=== PATIENT | female | born 1950 | race African-American/Black ===

== ENCOUNTER 2016-12-07 13:06 | Outpatient (CLI) | payer MEDICARE | END 2016-12-07 13:07 | disposition home or self-care (01) | DX: I26.99 Other pulmonary embolism without acute cor pulmonale (principal); I82.403 Acute embolism and thrombosis of unspecified deep veins of lower extremity, bilateral ==

== ENCOUNTER 2017-02-07 13:41 | Outpatient (CLI) | payer MEDICARE | END 2017-02-07 13:42 | disposition home or self-care (01) | DX: I26.99 Other pulmonary embolism without acute cor pulmonale (principal); I82.403 Acute embolism and thrombosis of unspecified deep veins of lower extremity, bilateral ==

== ENCOUNTER 2017-03-13 11:26 | Outpatient (CLI) | payer MEDICARE ==
[2017-03-13 12:03] LABS: INR 1.9 (0.8-1.2); PT - PROTHROMBIN TIME 21.5 secs (9.9-12.6)
== END 2017-03-13 11:27 | disposition home or self-care (01) ==
LOC: LAB 11:26
PROVIDERS: ATTEND Pharmacist
DX: I26.99 Other pulmonary embolism without acute cor pulmonale (principal)
CPT/HCPCS: 36415; 85610

== ENCOUNTER 2017-04-10 15:18 | Outpatient (CLI) | payer SELFPAY ==
[2017-04-10 17:53] LABS: INR 1.7 (0.8-1.2); PT - PROTHROMBIN TIME 19.6 secs (9.9-12.6)
== END 2017-04-10 15:19 | disposition home or self-care (01) ==
LOC: LAB.F 15:18
PROVIDERS: ATTEND Pharmacist
DX: I26.99 Other pulmonary embolism without acute cor pulmonale (principal)
CPT/HCPCS: 36415; 85610

== ENCOUNTER 2017-05-15 15:34 | Outpatient (CLI) | payer SELFPAY ==
[2017-05-15 19:35] LABS: INR 2.1 (0.8-1.2); PT - PROTHROMBIN TIME 23.4 secs (9.9-12.6)
== END 2017-05-15 15:35 | disposition home or self-care (01) ==
LOC: LAB.F 15:34
PROVIDERS: ATTEND Nurse Practitioner Family
DX: I26.99 Other pulmonary embolism without acute cor pulmonale (principal)
CPT/HCPCS: 36415; 85610

== ENCOUNTER 2017-06-19 08:49 | Outpatient (CLI) | payer MEDICAID ==
[2017-06-19 11:40] LABS: INR 2.8 (0.8-1.2); PT - PROTHROMBIN TIME 31.4 secs (9.9-12.6)
== END 2017-06-19 08:50 | disposition home or self-care (01) ==
LOC: LAB.F 08:49
PROVIDERS: ATTEND Pharmacist
DX: I26.99 Other pulmonary embolism without acute cor pulmonale (principal)
CPT/HCPCS: 36415; 85610

== ENCOUNTER 2017-09-06 08:19 | Outpatient (CLI) | payer MEDICARE, MEDICAID | END 2017-09-06 08:20 | disposition home or self-care (01) | LOC: LAB.F 08:19 | PROVIDERS: ATTEND Pharmacist | DX: I26.99 Other pulmonary embolism without acute cor pulmonale (principal); I82.403 Acute embolism and thrombosis of unspecified deep veins of lower extremity, bilateral | CPT/HCPCS: 36415 ==

== ENCOUNTER 2017-09-14 07:13 | Emergency (ER) | payer MEDICARE, MEDICAID ==
[2017-09-14] MEDS ORDERED: HYDROmorphone 1 MG/ML SYRINGE IM STA (07:59)
[2017-09-14] MEDS ORDERED: ONDANSETRON ODT 4 MG TABLET TL STA (07:59)
[2017-09-14] MEDS ORDERED: DEXAMETHASONE 10 MG/ML VIAL PO STA (07:59)
--- NOTE | 2017-09-14 08:03 | ED Physician Documentation ---
PD HPI ABD PAIN - Stated complaint Stated Complaint: LOWER ABD PX - Chief complaint Chief Complaint: Abd Pain - History obtained from History obtained from: Patient, Friend - History of Present Illness Timing - onset: Last night Timing - duration: Hours Timing - details: Gradual onset, Still present Pain level max: 10 Pain level now: 8 Quality: Sharp, Pain Location: LLQ Radiation: Left flank Improved by: Meds Worsened by: Other (nothing) Associated symptoms: Nausea. 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 She states this pain is usually been under control with CBD oil and the pain is now completely out of control. She did take some gabapentin she had been previously prescribed and this seems to have helped somewhat take the edge off the pain. She has had this similar pain previously and had some improvement with use of gabapentin and Dilaudid and she subsequently began to medicate with CBD oil and has not been using either gabapentin or Dilaudid. She does not feel like there is anything new or unusual about the pain other than the spike and it's non-response to the CBD. Review of Systems Constitutional: denies: Fever, Chills, Myalgias Eyes: denies: Decreased vision Ears: denies: Ear pain Nose: denies: Congestion Throat: denies: Sore throat Cardiac: denies: Chest pain / pressure, Palpitations Respiratory: denies: Dyspnea, Cough GI: reports: Abdominal Pain, Nausea. denies: Vomiting, Constipation, Diarrhea : denies: Dysuria, Frequency Skin: denies: Rash, Lesions Musculoskeletal: reports: Back pain. denies: Neck pain, Extremity pain Neurologic: denies: Generalized weakness, Focal weakness, Numbness PD PAST MEDICAL HISTORY - Past Medical History Cardiovascular: Hypertension, Deep vein thrombosis, Pulmonary embolism Respiratory: None, Asthma Neuro: None Endocrine/Autoimmune: None GI: Chronic diarrhea, Other AIRCONDITIONING ENGINEER: None : Other HEENT: None Psych: None Musculoskeletal: None Derm: None Other Past Medical History: Stage 4 sarcoma - Past Surgical History Past Surgical History: Yes General: Bowel surgery Ortho: Arthroscopic surgery /AIRCONDITIONING ENGINEER: Tubal ligation, Hysterectomy - Present Medications Home Medications: Ambulatory Orders Medication Instructions Recorded Confirmed Cholecalciferol (Vitamin D3) 2,000 units PO DAILY 08/29/16 09/14/17 [Vitamin D3] Levothyroxine [Synthroid] 75 mcg PO DAILY 08/29/16 09/14/17 Potassium Chloride [Micro-K] 10 meq PO BID 08/29/16 09/14/17 Scopolamine [Transderm-Scop] 1 patch TOP OAW 08/29/16 09/14/17 Warfarin [Coumadin] 5 mg PO DAILY 08/29/16 09/14/17 amLODIPine [Norvasc] 10 mg PO DAILY 08/29/16 09/14/17 hydroCHLOROthiazide 25 mg PO DAILY 08/29/16 09/14/17 [Hydrochlorothiazide] methylPREDNISolone 4 mg PO PRN PRN 08/29/16 09/14/17 [Methylprednisolone] Albuterol Sulfate [Proventil Hfa 1 - 2 puffs INH Q4H PRN 09/14/17 09/14/17 Inhaler] Hydromorphone HCl [Dilaudid] 4 mg PO Q4HR PRN #20 tablet 09/14/17 - Allergies Allergies/Adverse Reactions: Allergies Allergy/AdvReac Type Severity Reaction Status Date / Time Iodinated Contrast- Oral and Allergy Anaphylaxis Verified 09/14/17 07:23 IV Dye Penicillins AdvReac Intermediate Rash Verified 09/14/17 07:23 coban Allergy Rash Uncoded 09/19/16 12:04 plastic tape Allergy Rash Uncoded 09/19/16 12:03 - Social History Does the pt smoke?: No Smoking Status: Never smoker Does the pt drink ETOH?: Yes Does the pt have substance abuse?: Yes - Immunizations Immunizations are current?: Yes - POLST Patient has POLST: No PD ED PE NORMAL - Vitals Vital signs reviewed: Yes (normal ) - General General: Alert and oriented X 3, No acute distress, Well developed/nourished - HEENT HEENT: Atraumatic, PERRL, EOMI - Neck Neck: Supple, no meningeal sign - Respiratory Respiratory: No respiratory distress - Abdomen Abdomen: Soft, Non tender, Other (there are no skin changes noted to the area of the pain. ) - Back Back: No CVA TTP, No spinal TTP - Derm Derm: Normal color, Warm and dry, No rash - Extremities Extremities: No deformity, No edema - Neuro Neuro: No motor deficit, No sensory deficit Eye Opening: Spontaneous Motor: Obeys Commands Verbal: Oriented GCS Score: 15 - Psych Psych: Normal mood, Normal affect Results - Vitals Vitals: Vital Signs - 24 hr 09/14/17 07:18 Temperature 36.5 C Heart Rate 92 Respiratory 16 Rate Blood Pressure 104/77 O2 Saturation 95 Oxygen O2 Source Room air PD MEDICAL DECISION MAKING - ED course Complexity details: considered differential, d/w patient ED course: 67-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 We have offered pain control and here in the emergency department we have administered dexamethasone and Dilaudid with Zofran. I will write a prescription for some Dilaudid for the patient. I considered alternative diagnosis to account for her pain. She does not have a kidney on that side and kidney stone is not likely. She has had this pain previously related to her cancer and has an exacerbation after immunotherapy. We are hoping for tumor necrosis. Departure - Departure Disposition: Home, Self Care Clinical Impression: Cancer associated pain Condition: Stable Instructions: ED Chronic Pain Management Follow-Up: MARCO ANTONIO LEE [Primary Care Provider] - Prescriptions: Hydromorphone HCl [Dilaudid] 4 mg PO Q4HR PRN #20 tablet PRN Reason: Pain
[2017-09-14] MEDS ORDERED: HYDROmorphone 1 MG/ML SYRINGE ONE (08:10)
[2017-09-14] MEDS ORDERED: ONDANSETRON ODT 4 MG TABLET ONE (08:11)
[2017-09-14] MEDS ORDERED: DEXAMETHASONE 10 MG/ML VIAL ONE (08:11)
[2017-09-14 09:23] VITALS: BP 114/68
== END 2017-09-14 09:32 | disposition home or self-care (01) ==
LOC: ED 07:13
DX: G89.3 Neoplasm related pain (acute) (chronic) (principal); C26.9 Malignant neoplasm of ill-defined sites within the digestive system; I10 Essential (primary) hypertension; Z86.711 Personal history of pulmonary embolism; Z86.718 Personal history of other venous thrombosis and embolism; Z79.01 Long term (current) use of anticoagulants
CPT/HCPCS: 96372; 99283; J1170; Q0162

== ENCOUNTER 2017-11-18 11:18 | Outpatient (CLI) | payer MEDICARE, MEDICAID | END 2017-11-18 11:19 | disposition critical access hospital (66) | LOC: EMS 11:18 | PROVIDERS: ATTEND Surgery | DX: K92.1 Melena (principal) | CPT/HCPCS: A0425; A0429 ==

== ENCOUNTER 2017-12-31 18:33 | Outpatient (CLI) | payer MEDICARE, MEDICAID | END 2017-12-31 18:34 | disposition critical access hospital (66) | LOC: EMS 18:33 | PROVIDERS: ATTEND Surgery | DX: R53.1 Weakness (principal); W18.39XA Other fall on same level, initial encounter; Y92.002 Bathroom of unspecified non-institutional (private) residence as the place of occurrence of the external cause | CPT/HCPCS: A0425; A0429 ==

== ENCOUNTER 2017-12-31 19:00 | Observation (INO) | payer MEDICARE, MEDICAID ==
[2017-12-31 20:19] LABS: BILIRUBIN,URINE NEGATIVE (NEGATIVE); GLUCOSE, URINE (UA) NEGATIVE (NEGATIVE); KETONES,URINE (UA) NEGATIVE (NEGATIVE); LEUKOCYTE ESTERASE, URINE NEGATIVE (NEGATIVE); NITRITE,URINE NEGATIVE (NEGATIVE); OCCULT BLOOD,URINE NEGATIVE (NEGATIVE); PH,URINE 5.5 PH (5.0-7.5); PROTEIN,URINE NEGATIVE (NEGATIVE); UROBILINOGEN,URINE 0.2 (NORMAL) E.U./dL (NORMAL)
[2017-12-31 20:21] LABS: CLARITY,URINE CLEAR (CLEAR)
[2017-12-31 20:46] LABS: BACTERIA,URINE Moderate /HPF (None Seen); RBC,URINE 0-5 /HPF (0-5); SQUAMOUS EPITHELIAL CELL,UR MANY Squamous (<= Few)
--- NOTE | 2017-12-31 21:44 | ED Physician Documentation ---
History of Present Illness - Stated complaint Stated Complaint: GLF/WEAKNESS - Chief complaint Chief Complaint: Neuro - History obtained from History obtained from: Patient - History of Present Illness Timing: Enter time (12:00 (noon)), Today Pain level now: 0 Improved by: no ameliorating factors Worsened by: no apparent inciting or exacerbating factors - Additonal information Additional information: c/o sudden onset generalized weakness since noon today, she fell to the floor, although she did not sustain any injuries. She denies loss of consciousness. She lay on the floor for approximately two hours because of her profound, generalized weakness. She was eventually able to get to her phone, called [facility], But before they were able to advise her, her phone was running out of battery. Does she hung up and called 911 and was brought to this emergency department. Patient lives alone. patient was at [facility] yesterday when she was transfused red blood cells and fluids. Review of Systems Constitutional: reports: Fatigue. denies: Fever, Chills, Sweats Cardiac: reports: Reviewed and negative Respiratory: reports: Reviewed and negative GI: reports: Reviewed and negative : denies: Dysuria, Frequency Musculoskeletal: reports: Reviewed and negative Neurologic: reports: Generalized weakness. denies: Focal weakness, Numbness, Syncope, Confused, Altered mental status, Headache, Head injury, LOC PD PAST MEDICAL HISTORY - Past Medical History Cardiovascular: Hypertension, Deep vein thrombosis, Pulmonary embolism Respiratory: Shortness of breath Neuro: Other Endocrine/Autoimmune: HyPOthyroidism GI: GI bleed, Ulcers, Chronic diarrhea, Other MESS ATTENDANT CREW: None : Other HEENT: Other Psych: None Musculoskeletal: Osteoarthritis, Fatigue Derm: Other - Past Surgical History Past Surgical History: Yes General: Appendectomy, Bowel surgery Ortho: Arthroscopic surgery /MESS ATTENDANT CREW: Tubal ligation, Hysterectomy - Present Medications Home Medications: Ambulatory Orders Medication Instructions Recorded Confirmed Cholecalciferol (Vitamin D3) 2,000 units PO DAILY 08/29/16 11/18/17 [Vitamin D3] Potassium Chloride [Micro-K] 20 meq PO BID 08/29/16 11/19/17 Scopolamine [Transderm-Scop] 1 patch TOP Q72H 08/29/16 11/19/17 Warfarin [Coumadin] 1.25 mg PO DAILY 08/29/16 11/19/17 amLODIPine [Norvasc] 10 mg PO DAILY 08/29/16 11/18/17 hydroCHLOROthiazide 25 mg PO DAILY 08/29/16 11/18/17 [Hydrochlorothiazide] methylPREDNISolone 4 mg PO PRN PRN 08/29/16 11/18/17 [Methylprednisolone] Albuterol Sulfate [Proventil Hfa 1 - 2 puffs INH Q4H PRN 09/14/17 11/18/17 Inhaler] Hydromorphone HCl [Dilaudid] 4 mg PO Q4HR PRN #20 tablet 09/14/17 11/18/17 Levothyroxine Sodium [Synthroid] 100 mcg PO QDAC 11/19/17 01/01/18 Magnesium Oxide [Mag Ox] 400 mg PO DAILYWM #30 tablet 11/21/17 Duloxetine HCl 20 mg PO DAILY 01/01/18 Pantoprazole [Protonix] 40 mg PO QDAC 01/01/18 - Allergies Allergies/Adverse Reactions: Allergies Allergy/AdvReac Type Severity Reaction Status Date / Time Iodinated Contrast- Oral and Allergy Anaphylaxis Verified 09/14/17 07:23 IV Dye Penicillins AdvReac Intermediate Rash Verified 09/14/17 07:23 coban Allergy Rash Uncoded 09/19/16 12:04 plastic tape Allergy Rash Uncoded 09/19/16 12:03 - Social History Does the pt smoke?: No Smoking Status: Never smoker Does the pt drink ETOH?: Yes Does the pt have substance abuse?: Yes - Immunizations Immunizations are current?: Yes - POLST Patient has POLST: No PD ED PE NORMAL - Vitals Vital signs reviewed: Yes - General General: Alert and oriented X 3, No acute distress, Well developed/nourished - HEENT HEENT: Atraumatic, PERRL, EOMI, Moist mucous membranes - Neck Neck: Supple, no meningeal sign - Cardiac Cardiac: RRR, No murmur, No gallop, No rub - Respiratory Respiratory: No respiratory distress, Clear bilaterally - Abdomen Abdomen: Soft, Non tender - Back Back: No CVA TTP - Extremities Extremities: No edema - Neuro Neuro: Alert and oriented X 3, customer advisor specialist 2-12 intact, No motor deficit (although she has good bilateral manager child strength and plantar flexion,she exhibits generalize weakness manifest as unable to use bedside commode without substantial assistance or even sit up in bed for lung exam without assistance.), No sensory deficit, Normal speech Eye Opening: Spontaneous Motor: Obeys Commands Verbal: Oriented GCS Score: 15 Results - Vitals Vitals: Oxygen O2 Source Room air - Labs Labs: Laboratory Tests 12/31/17 12/31/17 12/31/17 19:45 22:30 22:30 WBC 12.2 H RBC 3.66 L Hgb 10.2 L Hct 30.4 L MCV 83.1 MCH 27.9 MCHC 33.6 RDW 17.3 H Plt Count 151 MPV 8.0 Neut # Not Reportable Lymph # Not Reportable [place] # Not Reportable Eos # Not Reportable Baso # Not Reportable Absolute Nucleated RBC Not Reportable Total Counted 100 Band Neuts % (Manual) 1 Reactive Lymphs % (Man) 4 Abnorm Lymph % (Manual) 0 Nucleated RBC % Not Reportable Neutrophils # (Manual) 8.8 H Lymphocytes # (Manual) 1.6 Monocytes # (Manual) 1.8 H Eosinophils # (Manual) 0.0 Basophils # (Manual) 0.0 Differential Comment MANUAL DIFFERENTIAL Platelet Estimate NORMAL (130-450,000) Platelet Morphology NORMAL APPEARANCE RBC Morph Micro Appear 1+ MICROCYTOSIS PT INR Sodium 135 Potassium 2.5 L* Chloride 104 Carbon Dioxide 21 Anion Gap 10.0 BUN 8 Creatinine 1.1 H Estimated GFR (MDRD) 60 L Glucose 85 Calcium 7.2 L Total Bilirubin 0.9 AST 18 ALT < 10 L Alkaline Phosphatase 72 Total Creatine Kinase Total Protein 4.7 L Albumin 1.3 L Globulin 3.4 Albumin/Globulin Ratio 0.4 L Lipase < 10 L Urine Color YELLOW Urine Clarity CLEAR Urine pH 5.5 Ur Specific [place] 1.010 Urine Protein NEGATIVE Urine Glucose (UA) NEGATIVE Urine Ketones NEGATIVE Urine Occult Blood NEGATIVE Urine Nitrite NEGATIVE Urine Bilirubin NEGATIVE Urine Urobilinogen 0.2 (NORMAL) Ur Leukocyte Esterase NEGATIVE Urine RBC 0-5 Urine WBC 0-3 Ur Squamous Epith Cells MANY Squamous H Urine Bacteria Moderate H Urine Culture Comments NOT INDICATED 12/31/17 12/31/17 22:30 22:30 WBC RBC Hgb Hct MCV MCH MCHC RDW Plt Count MPV Neut # Lymph # [place] # Eos # Baso # Absolute Nucleated RBC Total Counted Band Neuts % (Manual) Reactive Lymphs % (Man) Abnorm Lymph % (Manual) Nucleated RBC % Neutrophils # (Manual) Lymphocytes # (Manual) Monocytes # (Manual) Eosinophils # (Manual) Basophils # (Manual) Differential Comment Platelet Estimate Platelet Morphology RBC Morph Micro Appear PT 15.3 H INR 1.4 H Sodium Potassium Chloride Carbon Dioxide Anion Gap BUN Creatinine Estimated GFR (MDRD) Glucose Calcium Total Bilirubin AST ALT Alkaline Phosphatase Total Creatine Kinase 10 L Total Protein Albumin Globulin Albumin/Globulin Ratio Lipase Urine Color Urine Clarity Urine pH Ur Specific [place] Urine Protein Urine Glucose (UA) Urine Ketones Urine Occult Blood Urine Nitrite Urine Bilirubin Urine Urobilinogen Ur Leukocyte Esterase Urine RBC Urine WBC Ur Squamous Epith Cells Urine Bacteria Urine Culture Comments PD MEDICAL DECISION MAKING - ED course Complexity details: reviewed results, re-evaluated patient, considered differential, d/w patient ED course: generalized weakness with hypokalemia. she reported feeling improved during ED stay, although still too weak to stand and ambulate on her own. Departure - Departure Disposition: ED Place in Observation Clinical Impression: Hypokalemia, Weakness Condition: Fair Discharge Date/Time: 01/01/18 02:30
[2017-12-31] MEDS ORDERED: SODIUM CHLORIDE 0.9% 500 ML IV STA (22:01)
[2017-12-31 22:47] LABS: BASOPHILS % (AUTO) 0.1 %; EOSINOPHILS % (AUTO) 0.4 %; HGB - HEMOGLOBIN 10.2 g/dL (12.0-16.0); LYMPHOCYTES % (AUTO) 9.1 %; MEAN CORPUSCULAR HEMOGLOBIN 27.9 pg (27.0-31.0); MEAN CORPUSCULAR HGB CONC 33.6 g/dL (32.0-36.0); MEAN CORPUSCULAR VOLUME 83.1 fL (81.0-99.0); MONOCYTES % (AUTO) 18.9 %; NEUTROPHILS % (AUTO) 71.5 %; PLT - PLATELET COUNT 151 10^3/uL (130-450); RED BLOOD COUNT 3.66 10^6/uL (4.20-5.40); RED CELL DISTRIBUTION WIDTH 17.3 % (12.0-15.0); WHITE BLOOD COUNT 12.2 x10^3/uL (4.8-10.8)
[2017-12-31 22:50] LABS: ABNORMAL LYMPHS % (MANUAL) 0 %
[2017-12-31 23:07] LABS: ALBUMIN 1.3 g/dL (3.2-5.5); ALBUMIN/GLOBULIN RATIO 0.4 (1.0-2.2); ALKALINE PHOSPHATASE 72 IU/L (42-121); ALT ALANINE AMINOTRANSFERASE < 10 IU/L (10-60); AST ASPARTATE AMINOTRANSFERASE 18 IU/L (10-42); BILIRUBIN,TOTAL 0.9 mg/dL (0.2-1.0); BUN - BLOOD UREA NITROGEN 8 mg/dL (6-20); CALCIUM 7.2 mg/dL (8.5-10.3); CARBON DIOXIDE - CO2 21 mmol/L (21-32); CHLORIDE 104 mmol/L (101-111); CREATININE 1.1 mg/dL (0.4-1.0); GFR - MDRD 60 (>89); GLUCOSE 85 mg/dL (70-100); SODIUM 135 mmol/L (135-145); TOTAL PROTEIN 4.7 g/dL (6.7-8.2)
[2017-12-31 23:09] LABS: LIPASE < 10 U/L (22-51)
[2017-12-31] MEDS ORDERED: HYDROmorphone 1 MG/ML SYRINGE IVP STA (23:10)
[2017-12-31] MEDS ORDERED: POTASSIUM CHLOR 10 MEQ/100 ML 10 MEQ/100 ML BAG IV STA (23:11)
[2017-12-31] MEDS ORDERED: POTASSIUM CHLOR 10 MEQ/100 ML 10 MEQ/100 ML BAG IV ONE (23:11)
[2017-12-31 23:21] LABS: BAND NEUTROPHILS % (MANUAL) 1 %; LYMPHOCYTES # (MANUAL) 1.6 10^3/uL (1.5-3.5); LYMPHOCYTES % (MANUAL) 9 %; MONOCYTES # (MANUAL) 1.8 10^3/uL (0.0-1.0); NEUTROPHILS # (MANUAL) 8.8 10^3/uL (1.5-6.6); NEUTROPHILS % (MANUAL) 71 %
[2017-12-31 23:23] LABS: DIFFERENTIAL COMMENT MANUAL DIFFERENTIAL; PLATELET ESTIMATE, MANUAL NORMAL (130-450,000) (NORMAL); PLATELET MORPHOLOGY NORMAL APPEARANCE (NORMAL)
[2018-01-01] MEDS ORDERED: PROCHLORPERAZINE 10 MG/2 ML VIAL IVP PRN (01:27)
[2018-01-01] MEDS ORDERED: TEMAZEPAM 15 MG CAPSULE PO PRN (01:27)
[2018-01-01] MEDS ORDERED: ACETAMINOPHEN 325 MG TABLET PO PRN (01:27)
[2018-01-01] MEDS ORDERED: ALBUTEROL SULFATE INH PRN (01:31)
[2018-01-01] MEDS ORDERED: ALBUTEROL 6.7 GM INHALER INH PRN (01:55)
[2018-01-01] MEDS ORDERED: SCOPOLAMINE PATCH TOP SCH (02:00)
--- NOTE | 2018-01-01 03:02 | XRAY Preliminary Report ---
Exam: XR CHEST 2 VIEW X-RAY IMPRESSION: 1. Small hazy left basilar airspace disease. Trace left effusion. 2. Right arm PICC line catheter tip at the cavoatrial junction. [facility] SITE ID: [id number]
--- NOTE | 2018-01-01 03:05 | CT Preliminary Report ---
Exam: CT HEAD W/O IMPRESSION: Generalized age-related cortical atrophic changes without evidence of acute intracranial abnormality. [facility] SITE ID: [id number]
--- NOTE | 2018-01-01 03:07 | XRAY Report ---
EXAM: CHEST RADIOGRAPHY EXAM DATE: 01/01/2018 02:38 AM. CLINICAL HISTORY: Near syncope, chest pain. COMPARISON: 05/04/2013. TECHNIQUE: 2 views. FINDINGS: Lungs/Pleura: Small lung volumes. There is left basilar hazy opacity. Trace left effusion. No definit e pneumothorax. Mediastinum: Mild enlargement of the cardiac silhouette. Other: Right arm PICC line catheter tip projects at the cavoatrial junction. IMPRESSION: 1. Small hazy left basilar airspace disease. Trace left effusion. 2. Right arm PICC line catheter tip at the cavoatrial junction. [facility] Referring Provider Line: [phone] SITE ID: [id number]
--- NOTE | 2018-01-01 03:11 | CT Report ---
EXAM: CT HEAD EXAM DATE: 01/01/2018 02:37 AM. CLINICAL HISTORY: Near-syncope. COMPARISON: Brain CT from 05/04/2013. TECHNIQUE: Multiaxial CT images were obtained from the foramen magnum to the vertex. Reformats: Coron al. IV contrast: None. In accordance with CT protocol optimization, one or more of the following dose reduction techniques w ere utilized for this exam: automated exposure control, adjustment of mA and/or KV based on patient s ize, or use of iterative reconstructive technique. FINDINGS: Parenchyma: No intraparenchymal hemorrhage. No evidence of mass, midline shift, or CT findings of acu te infarction. Cesar-white differentiation is distinct. Mild diffuse chronic microangiopathic white ma tter changes are evident. Extraaxial Spaces: Normal for age. No subdural or epidural collections identified. Ventricles: The ventricles and cortical sulci are moderately enlarged, consistent with age-related ti ssue loss. Sinuses and orbits: Imaged paranasal sinuses, orbits, and mastoids show no significant abnormality. Bones: No evidence of fracture or calvarial defect. IMPRESSION: Generalized age-related cortical atrophic changes without evidence of acute intracranial abnormality. [facility] Referring Provider Line: [phone] SITE ID: [id number]
[2018-01-01] MEDS: HYDROmorphone 1 MG/ML SYRINGE IVP PRN ×3 (03:19→16:08)
[2018-01-01] MEDS: SODIUM CHLORIDE FLUSH 0.9% 10 ML SYRINGE IVP PRN ×3 (03:20→12:31)
[2018-01-01 05:54] LABS: CALCIUM 7.3 mg/dL (8.5-10.3); CREATININE 1.1 mg/dL (0.4-1.0)
[2018-01-01 07:00] LABS: INR 1.4 (0.8-1.2); PT - PROTHROMBIN TIME 15.3 secs (9.9-12.6)
[2018-01-01] MEDS ORDERED: LEVOTHYROXINE 100 MCG TABLET PO SCH (07:00)
[2018-01-01] MEDS ORDERED: ALBUTEROL NEB 2.5 MG/3 ML INH PRN (07:16)
--- NOTE | 2018-01-01 07:38 | HISTORY & PHYSICAL EXAMINATION ---
DATE OF SERVICE: 01/01/2018 Physician: Debo Lomax MD HISTORY OF PRESENT ILLNESS: This is a 67-year-old, black female with history of hypertension, DVT and pulmonary embolism for which she was on Coumadin, history of sarcoma involving many organs and she sees an oncologist in [place], history of anemia, hypothyroidism , shortness of breath for which she uses an inhaler p.r.n., osteoarthritis, prior appendectomy , hysterectomy, and tubal ligation. The patient presents with an episode of sudden, severe weakness and falling. She was walking in her house, and suddenly felt extremely weak and slumped to the ground, stated she did not have trauma, nor syncope, as she can remember the entire event. She laid on the floor for approximately 2 hours until she was able to shimmy herself over to her cell phone. She called her oncologist and was put on hold, and decided therefore to call 911. The EMS people picked her up and brought her to the emergency room. They told her that they may have picked up traces of carbon monoxide in the apartment. The patient has just moved to this apartment approximately 2-3 months ago and lives alone. In the emergency room, she gave this entire description and had no other complaints whatsoever. She was found to have a low potassium of 2.5 in our emergency room and started to get potassium replacement. She did describe that she was in [place] 1 or 2 days ago for a transfusion of 2 units of packed red blood cells. To me, she claims that they did not give a diuretic in between the transfusions. As she is describing the event, she is speaking very slowly, as if she is very lethargic or sedated, and she states that this type of slow speech is not her normal. PAST MEDICAL HISTORY: Hypertension, DVT and PE, for which she was on Coumadin, and was admitted here approximately 6 weeks ago for a melenic stool, was accepted for transfer to [place], but they had no open beds and her melena did not recur while she was awaiting a bed for several days and she actually was discharged home without an endoscopy. She has a history of shortness of breath for which she uses inhalers p.r.n., history of hypothyroidism, osteoarthritis, appendectomy, tubal ligation, and hysterectomy, history of sarcoma with mets, followed by an Oncologist in [place]. ALLERGIES 1. IODINE. 2. PENICILLINS. 3. COBAN. 4. PLASTIC TAPE. MEDICATIONS AT HOME 1. Vitamin D3 2000 units daily. 2. Hydrochlorothiazide 25 mg daily. 3. Amlodipine 10 mg daily. 4. Scopolamine patch topically every 3 days. 5. Potassium chloride 20 mEq b.i.d. 6. Magnesium 400 mg daily. 7. Synthroid 100 mcg daily. 8. Albuterol inhaler p.r.n. 9. Dilaudid unknown dose q.4 hours p.r.n. pain. 10. A Medrol Dosepak is listed, but it is unclear if she really takes this. All of these medication are unconfirmed yet with her pharmacy, as to being current. REVIEW OF SYSTEMS: A comprehensive review of systems was performed and the pertinent positives are as above. The patient has never had an event like this before. FAMILY HISTORY: No inherited diseases. SOCIAL HISTORY: She is a nonsmoker who never smoked, uses no alcohol, uses no illicit drugs. She is living alone in a new apartment. She does not work. PHYSICAL EXAMINATION GENERAL: Elderly, black female. She appears older than her age. She is moving all extremities. She is speaking with very slow speech, almost slurring her words. VITAL SIGNS: Blood pressure 143/82, pulse of 81 in sinus rhythm, afebrile, room air saturation 96%. HEENT: Shows moist oral mucosa. No nasal discharge. NECK: Without JVD or carotid bruits. LUNGS: Clear. HEART: Heart sounds normal. No audible murmurs or gallops. ABDOMEN: Soft, normal bowel sounds, nontender. EXTREMITIES: Show no clubbing, cyanosis or edema. NEUROLOGIC: Slow, slurred speech, otherwise grossly intact. LABORATORIES: Sodium 135, potassium 2.5, BUN 8, creatinine 1.1. Liver tests normal. Bilirubin normal. Albumin 1.3. White blood count 12.2 with a left shift, hemoglobin 10.2, platelet count normal at 151. Urinalysis showed many squamous cells and was leukocyte esterase negative. No PT/INR was done. Chest x-ray has a haziness in the left base and a trace left effusion, and there is a right arm PICC line with its tip in the cavoatrial junction. A head CT was done after she was admitted showing no acute mass or hemorrhage. There was generalized age-related cortical atrophy. EKG: Normal sinus rhythm with QS waves in V5 and V6, and poor R-wave progression across the precordium, and diffusely flat T waves. She has early repolarization. There is no old EKG available for comparison. IMPRESSION/DIAGNOSES 1. Near syncope vs. sudden generalized weakness. 2. Weakness and slurred speech. Possible carbon monoxide exposure, according to the patient's report. 3. Hypokalemia. 4. Sarcoma of multiple sites. 5. Anemia and prior gastrointestinal bleed, recent blood transfusion. 6. Abnormal electrocardiogram with evidence of a prior lateral HI (versus abnormal lead positioning). PLAN: Place the patient in Observation. Telemetry should be used to monitor her for a dysrhythmia. Her low potassium may have caused a significant arrhythmia, resulting in this sudden event. Correct the potassium and follow BMP. Obtain orthostatic vital signs to determine if there are signs of dehydration. Obtain a PT/INR to determine if she is back on the Coumadin. Reconcile her entire list of medications to make sure that there is no sedative or other medication that could be giving her this slow speech plus weakness, resulting in a fall. Obtain a CK to check for rhabdomyolysis, given the fact that she was 2 hours on the ground. Obtain an Echo to evaluate for an HI, given the abnormal EKG and cycle troponins to evaluate for an acute HI. A TIA workup should also be done including carotid Doppler and a brain MRI. Avoid sedatives such as sleeping medications, use pain medications at a minimum. DEEP VENOUS THROMBOSIS PROPHYLAXIS: SCDs and she may already be therapeutic on pharmaceutical therapy. CODE STATUS: DNR, which was confirmed with her at the very last admission 6 weeks ago. ATTESTATION: The patient is expected to be discharged or transferred to another facility within 96 hours: Yes. TD: 01/01/2018 07:37 M[place]
[2018-01-01] MEDS ORDERED: GADOBUTROL 7.5 MMOL/7.5 ML VIAL ONE (07:57)
[2018-01-01] MEDS ORDERED: POTASSIUM CHLORIDE 10 MEQ CAPSULE PO SCH (08:00)
[2018-01-01] MEDS ORDERED: MAGNESIUM OXIDE 400 MG TABLET PO SCH (08:00)
[2018-01-01] MEDS ORDERED: NS W/20 MEQ KCL 1,000 ML IV SCH (08:00)
[2018-01-01] MEDS ORDERED: FAMOTIDINE 20 MG TABLET PO SCH (09:00)
[2018-01-01] MEDS ORDERED: POLYETHYLENE GLYCOL 3350 17 GM PACKET PO SCH (09:00)
[2018-01-01] MEDS ORDERED: NON FORMULARY MED (Cholecalciferol (Vitamin D3) [Vitamin D3] 2,000 UNITS) PO SCH (09:00)
[2018-01-01] MEDS ORDERED: CHOLECALCIFEROL 1,000 UNIT TABLET PO SCH (09:00)
[2018-01-01] MEDS: POTASSIUM CHLOR 10 MEQ/100 ML 10 MEQ/100 ML BAG IV SCH ×3 (09:02→12:57)
[2018-01-01] MEDS ORDERED: GADOBUTROL 7.5 MMOL/7.5 ML VIAL IVP ONE (12:00)
--- NOTE | 2018-01-01 13:05 | MRI Report ---
EXAM: MRI BRAIN WITHOUT AND WITH CONTRAST EXAM DATE: 01/01/2018 12:03 PM. CLINICAL HISTORY: 67-year-old with slurred speech COMPARISON: CT head 01/01/2018, 05/04/2013. TECHNIQUE: Multiplanar, multisequence T1-weighted and fluid-sensitive MR sequences of the brain were performed. Sequences optimized for routine evaluation. Other: None. IV Contrast: 6 cc GADAVIST. FINDINGS: Brain Volume: Normal for age. Parenchyma: No acute parenchymal hemorrhage, mass, or midline shift. Jozd-st-zmcjndza bilateral areas of T2/FLAIR signal hyperintensity seen. No areas of restricted diffusion seen to suggest acute infar ct. No areas of abnormal parenchymal hemosiderin deposition. No abnormal enhancement. Ventricles/Cisterns: There is small volume FLAIR signal abnormalities seen within the sulci of the lay perior right frontal lobe with corresponding hemosiderin deposition. Findings suggest trace to small volume subarachnoid hemorrhage. There is prominent vascular structure seen coursing adjacent to the s ubarachnoid hemorrhage. No other abnormal extracerebral fluid collection/mass seen. Ventricles appear age-appropriate. Cisterns are patent. Orbits: Changes of bilateral lens replacement. Sella Turcica: The pituitary gland, cavernous sinuses, suprasellar cistern and optic chiasm are unrem arkable. IAC: Symmetric and unremarkable. Vasculature: Normal signal flow void is seen in the major arterial structures at the skull base. The dural sinuses are patent and enhance normally. Sinuses: No acute sinus disease. Bones: No focal pathologic appearing marrow signal changes. Other: None. IMPRESSION: 1. Small volume subarachnoid hemorrhage involving sulci of the right frontal lobe. There is prominen t vascular structure seen coursing adjacent to the subarachnoid hemorrhage. This raises the possibili ty of potential underlying occult vascular malformation. Consider correlation with cerebral angiogram . 2. No acute infarct, parenchymal hemorrhage, mass, hydrocephalus, midline shift, or abnormal postcont rast enhancement. 3. Mild to moderate white matter changes that while nonspecific may represent sequela of chronic smal l vessel ischemic disease. RADIA The above findings were discussed with Cassidy Joyce by Dr. Dale Bergeron at 13:03 hrs o n 01/01/18. Referring Provider Line: [phone] SITE ID: [id number]
[2018-01-01] MEDS: SODIUM CHLORIDE FLUSH 0.9% 10 ML SYRINGE IVP SCH ×2 (13:25→16:08)
--- NOTE | 2018-01-01 14:50 | Discharge Plan ---
Discharge Plan Disposition: 02 Transfer Acute Care Hosp Condition: Fair Diet: Regular Activity Restrictions: Activity as Tolerated Shower Restrictions: No Driving Restrictions: Yes Weight Bearing: Full Weight Additional Instructions or Follow Up instructions: Care to continue at [facility] ICU for acute right frontal subarachnoid hemorrhage ; per MRI report. Post-fall. No Smoking: If you smoke, Please STOP! Call for help. Follow-up with: Elisa Tom ARNP [Primary Care Provider] -
--- NOTE | 2018-01-01 14:54 | DISCHARGE SUMMARY ---
Discharge Summary Admit Date: 01/01/18 Discharge Date: 01/01/18 Discharging Provider: JORDAN Paz Primary Care Provider: Elisa Tom Code Status: Do Not Attempt Resuscitation Condition at Discharge: Fair Discharge Disposition: 02 Transfer Acute Care Hosp Discharge Facility Name: [facility] neuro surgery - DIAGNOSES Admission Diagnoses: Syncope and collapse (R55) Weakness (R53.1) Hypokalemia (E87.6) Malignant neoplasm of connective and soft tissue, unspecified (C49.9) Anemia, unspecified (D64.9) Discharge Diagnoses with Status of Each Condition: Nonaneurysmal subarachnoid hemorrhage - new on this admission, stable. Syncope and collapse (R55) resolved. Weakness (R53.1) ongoing, care to continue. Hypokalemia (E87.6) improved, care to continue. 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 Anemia, unspecified (D64.9) chronic, stable, no signs of bleeding. - HPI History of Present Illness: Iliana Cardozo is a 67-year old female with a past medical history of metastatic GIST, renal cell carcinoma, status post nephrectomy, status post spleenectomy, HTN, hypothyroidism, DVT/PE, GI bleeding, and anemia, status post blood transfusions. She reports that she fell last evening after becoming suddenly weak, but did not loose consciousness. She believes that she laid on the floor for about 2 hours, then shimmied to the nearest phone and attempted to call her oncologist in [place]. She did not get through to anyone , so called 911. Once in the ED she was fount to be hypokalemic with a potassium of 2.5, an elevated WBC count of 12. She denies any injuries, except she remembers hitting the back of her head at the time of the fall. She denies headaches, nausea, vomiting, fevers, chills or confusion. The patient has just moved to a new apartment which has been stressful, and states that only 2 days ago she had a blood transfusion for her anemia. The only neuro deficit noted was slow speech with processing delay. She will be admitted to observation for further workup including a brain MRI, telemetry monitoring, electrolyte replacement, and orthostatic vital signs. - HOSPITAL COURSE Hospital Course: The patient notes that when she fell at home prior to admission she hit the back of her head on the floor. She has been denying headaches, vision changes, or confusion during this hospital stay. Patient had a Potassium of 2.5 on admission that improved with IVFs, IV supplementation to 2.9 today. She has a right arm PICC line in good working order. Patient underwent a head CT early this AM at 0200 that did not show any acute bleeding. 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 A bedside echocardiogram was completed as part of her syncopal work up. Results show normal LV function and size with an EF of 55-60%, trace mitral regurg, mild tricuspid regurg, RVSP at rest is 20mmHg, a trivial pericardial effusion present , and no evidence of atrial shunt- confirmation with a bubble study. There was a medium sized pleural effusion noted. The patient did not require oxygen, and did not complain of shortness of breath. The pleural effusion may be a result of her recent blood transfusion/also history of PEs. A head MRI was completed at 11AM and results were called by reading radiologist who recommended cerebral angiogram due to acute findings of; small volume subarachnoid hemorrhage involving sulci of the right frontal lobe. There is prominent of potential underlying occult vascular malformation. A call was made to [facility] neuro- surgery who recommends transfer for possible intervention and due to bed shortages, patient will go to a general floor. Patient was transferred via ACLS to a higher level of care with appropriate specialists. A call was made to patient's son, Andrea with a medical update and upcoming plans of transport to [facility]. - ALLERGIES Allergies/Adverse Reactions: Allergies Allergy/AdvReac Type Severity Reaction Status Date / Time Iodinated Contrast- Oral and Allergy Anaphylaxis Verified 09/14/17 07:23 IV Dye Penicillins AdvReac Intermediate Rash Verified 09/14/17 07:23 coban Allergy Rash Uncoded 09/19/16 12:04 plastic tape Allergy Rash Uncoded 09/19/16 12:03 - MEDICATIONS Home Medications: Ambulatory Orders Medication Instructions Recorded Confirmed Cholecalciferol (Vitamin D3) 2,000 units PO DAILY 08/29/16 11/18/17 [Vitamin D3] Potassium Chloride [Micro-K] 20 meq PO BID 08/29/16 11/19/17 Scopolamine [Transderm-Scop] 1 patch TOP Q72H 08/29/16 11/19/17 Warfarin [Coumadin] 1.25 mg PO DAILY 08/29/16 11/19/17 amLODIPine [Norvasc] 10 mg PO DAILY 08/29/16 11/18/17 hydroCHLOROthiazide 25 mg PO DAILY 08/29/16 11/18/17 [Hydrochlorothiazide] methylPREDNISolone 4 mg PO PRN PRN 08/29/16 11/18/17 [Methylprednisolone] Albuterol Sulfate [Proventil Hfa 1 - 2 puffs INH Q4H PRN 09/14/17 11/18/17 Inhaler] Hydromorphone HCl [Dilaudid] 4 mg PO Q4HR PRN #20 tablet 09/14/17 11/18/17 Levothyroxine Sodium [Synthroid] 100 mcg PO QDAC 11/19/17 01/01/18 Magnesium Oxide [Mag Ox] 400 mg PO DAILYWM #30 tablet 11/21/17 Duloxetine HCl 20 mg PO DAILY 01/01/18 Pantoprazole [Protonix] 40 mg PO QDAC 01/01/18 - PHYSICAL EXAM AT DISCHARGE General Appearance: positive: No acute distress, Alert, Lethargic Eyes Bilateral: positive: Normal inspection ENT: positive: ENT inspection nml, No signs of dehydration Neck: positive: Thyroid nml, No JVD, Stiff neck Respiratory: positive: Chest non-tender, No respiratory distress Cardiovascular: positive: Regular rate & rhythm, No gallop, Decreased pulse(s) Peripheral Pulses: positive: 1+ Abdomen: positive: Non-tender, No organomegaly, Nml bowel sounds Back: positive: Nml inspection Skin: positive: No rash, Warm, Dry Extremities: positive: Non-tender, Full ROM, No pedal edema Neurologic/Psychiatric: positive: CN's nml (2-12), Sensation nml, Weakness, Slurred/abnml speech (slow delayed responses, abnormal from baseline. No confusion or expressive aphasia.), Depressed mood/affect Reflexes: Bicep (R): 1+, Bicep (L): 1+ - LABS Result Diagrams: 12/31/17 22:30 01/01/18 05:32 - DIAGNOSTIC IMAGING Diagnostic Imaging Results: Final report reviewed Diagnostic Imaging Results Comments: EXAM: MRI BRAIN WITHOUT AND WITH CONTRAST EXAM DATE: 01/01/2018 12:03 PM. CLINICAL HISTORY: 67-year-old with slurred speech COMPARISON: CT head 01/01/2018, 05/04/2013. TECHNIQUE: Multiplanar, multisequence T1-weighted and fluid-sensitive MR sequences of the brain were performed. Sequences optimized for routine evaluation. Other: None. IV Contrast: 6 cc GADAVIST. FINDINGS: Brain Volume: Normal for age. Parenchyma: No acute parenchymal hemorrhage, mass, or midline shift. Mild-to- moderate bilateral areas of T2/FLAIR signal hyperintensity seen. No areas of restricted diffusion seen to suggest acute infarct. No areas of abnormal parenchymal hemosiderin deposition. No abnormal enhancement. Ventricles/Cisterns: There is small volume FLAIR signal abnormalities seen within the sulci of the superior right frontal lobe with corresponding hemosiderin deposition. Findings suggest trace to small volume subarachnoid hemorrhage. There is prominent vascular structure seen coursing adjacent to the subarachnoid hemorrhage. No other abnormal extracerebral fluid collection/mass seen. Ventricles appear age-appropriate. Cisterns are patent. Orbits: Changes of bilateral lens replacement. Sella Turcica: The pituitary gland, cavernous sinuses, suprasellar cistern and optic chiasm are unremarkable. IAC: Symmetric and unremarkable. Vasculature: Normal signal flow void is seen in the major arterial structures at the skull base. The dural sinuses are patent and enhance normally. Sinuses: No acute sinus disease. Bones: No focal pathologic appearing marrow signal changes. Other: None. IMPRESSION: 1. Small volume subarachnoid hemorrhage involving sulci of the right frontal lobe. There is prominent vascular structure seen coursing adjacent to the subarachnoid hemorrhage. This raises the possibility of potential underlying occult vascular malformation. Consider correlation with cerebral angiogram. 2. No acute infarct, parenchymal hemorrhage, mass, hydrocephalus, midline shift , or abnormal postcontrast enhancement. 3. Mild to moderate white matter changes that while nonspecific may represent sequela of chronic small vessel ischemic disease. EXAM: CT HEAD EXAM DATE: 01/01/2018 02:37 AM. CLINICAL HISTORY: Near-syncope. COMPARISON: Brain CT from 05/04/2013. TECHNIQUE: Multiaxial CT images were obtained from the foramen magnum to the vertex. Reformats: Coronal. IV contrast: None. In accordance with CT protocol optimization, one or more of the following dose reduction techniques were utilized for this exam: automated exposure control, adjustment of mA and/or KV based on patient size, or use of iterative reconstructive technique. FINDINGS: Parenchyma: No intraparenchymal hemorrhage. No evidence of mass, midline shift, or CT findings of acute infarction. Cesar-white differentiation is distinct. Mild diffuse chronic microangiopathic white matter changes are evident. Extraaxial Spaces: Normal for age. No subdural or epidural collections identified. Ventricles: The ventricles and cortical sulci are moderately enlarged, consistent with age-related tissue loss. Sinuses and orbits: Imaged paranasal sinuses, orbits, and mastoids show no significant abnormality. Bones: No evidence of fracture or calvarial defect. IMPRESSION: Generalized age-related cortical atrophic changes without evidence of acute intracranial abnormality. EXAM: CHEST RADIOGRAPHY EXAM DATE: 01/01/2018 02:38 AM. CLINICAL HISTORY: Near syncope, chest pain. COMPARISON: 05/04/2013. TECHNIQUE: 2 views. FINDINGS: Lungs/Pleura: Small lung volumes. There is left basilar hazy opacity. Trace left effusion. No definite pneumothorax. Mediastinum: Mild enlargement of the cardiac silhouette. Other: Right arm PICC line catheter tip projects at the cavoatrial junction. IMPRESSION: 1. Small hazy left basilar airspace disease. Trace left effusion. 2. Right arm PICC line catheter tip at the cavoatrial junction. - FOLLOW UP Follow Up: Follow up with your PCP within one week of discharge. - TIME SPENT Time Spent in Discharge (Minutes): 60
[2018-01-01 16:31] VITALS: BP 135/80
--- NOTE | 2018-01-03 14:21 | Ultrasound Report ---
PLEASE VERIFY FINDINGS/IMPRESSION CONSIDERING THE TABLES THE FINDINGS ? LAST 2 SENTENCES IMPRESSION? AUDIO CUT OFF AT END CAROTID DOPPLER ULTRASOUND: 01/01/2018. COMPARISON: No comparison. INDICATION: Near syncope. TECHNIQUE: Carotid Doppler ultrasound was performed using standard technique. FINDINGS: RIGHT Vessel PSV cm/sec EDV cm/sec ICA/CCA RSV Ratio Degree of Stenosis Plaque Estimate % RCCA Prox 45 -- -- RCCA Dist 33 11 -- RECA 45 -- -- RT BULB 43 16 1.30 BRIAN Prox 42 16 1.27 BRIAN Mid 47 20 1.42 BRIAN Dist 73 27 2.2 RVA 26 -- -- RVA flow direction: Antegrade LEFT Vessel PSV cm/sec EDV cm/sec ICA/CCA RSV Ratio Degree of Stenosis Plaque Estimate % LCCA Prox 49 -- -- LCCA Dist 29 8 -- LECA 44 -- -- LFT BULB 34 14 1.17 LICA Prox 42 17 1.44 LICA Mid 47 21 1.62 LICA Dist 44 17 1.51 LVA 27 -- -- LVA flow direction: Antegrade Velocity criteria are extrapolated from diameter data as defined by the Society of Radiologists in Ultrasound Consensus Conference Radiology 2003; 229; 340-346. Degree of Stenosis % ICA PSV cm/sec ICA EDV cm/sec ICA/CCA PSV Ratio Plaque Estimate % Normal < 125 < 40 < 2.0 None <50 < 125 < 40 < 2.0 < 50 50-69 125-130 40-100 2.0-4.0 >/=50 >/=70 but less than near occlusion > 230 > 100 > 4.0 >/=50 Near occlusion High, low or undetectable Variable Variable Visible Total occlusion Undetectable Not applicable Not applicable No detectable lumen There are mild hard and soft plaques of the bifurcations of the common carotid arteries. IMPRESSION: THERE IS NO CLINICALLY SIGNIFICANT CAROTID ARTERY STENOSIS. TD: 01/01/2018 14:53 [facility]
== END 2018-01-01 17:30 | disposition short-term general hospital (02) ==
LOC: EDUNIT# → ED 19:00 → OBS 01-01 01:27
PROVIDERS: ADMIT Internal Medicine; ATTEND Nurse Practitioner
DX: S06.6X0A Traumatic subarachnoid hemorrhage without loss of consciousness, initial encounter (principal); W18.30XA Fall on same level, unspecified, initial encounter; R55 Syncope and collapse; R53.1 Weakness; R47.89 Other speech disturbances; E87.6 Hypokalemia; C49.A9 Gastrointestinal stromal tumor of other sites; C79.9 Secondary malignant neoplasm of unspecified site; D64.9 Anemia, unspecified; I10 Essential (primary) hypertension; E03.9 Hypothyroidism, unspecified; R40.2412 Glasgow coma scale score 13-15, at arrival to emergency department; K52.9 Noninfective gastroenteritis and colitis, unspecified; M19.90 Unspecified osteoarthritis, unspecified site; R94.31 Abnormal electrocardiogram [ECG] [EKG]; Z66 Do not resuscitate; Z91.81 History of falling; Y93.01 Activity, walking, marching and hiking; Y92.009 Unspecified place in unspecified non-institutional (private) residence as the place of occurrence of the external cause; Z79.01 Long term (current) use of anticoagulants; Z79.51 Long term (current) use of inhaled steroids; Z79.52 Long term (current) use of systemic steroids; Z79.899 Other long term (current) drug therapy; Z90.5 Acquired absence of kidney; Z90.81 Acquired absence of spleen; Z86.711 Personal history of pulmonary embolism; Z86.718 Personal history of other venous thrombosis and embolism; Z87.11 Personal history of peptic ulcer disease
CPT/HCPCS: 36415; 70450; 70553; 71046; 80048; 80053; 81001; 82550; 83690; 84484; 85025; 85610; 93005; 93306; 93880; 96361; 96365; 96366; 96375; 96376; 99284; A9270; A9585; G0378; J1170; J3490; 87086; 99283

== ENCOUNTER 2018-01-01 17:45 | Outpatient (CLI) | payer MEDICARE, MEDICAID | END 2018-01-01 17:46 | disposition short-term general hospital (02) | LOC: EMS 17:45 | PROVIDERS: ATTEND Surgery | DX: R11.0 Nausea (principal); R51 Headache; R53.1 Weakness; W18.30XA Fall on same level, unspecified, initial encounter | CPT/HCPCS: A0425; A0426 ==